=== PATIENT | female | born 1970 | race Caucasian/White ===

== ENCOUNTER 2017-10-16 09:34 | Emergency (ER) | payer OTHER ==
[2017-10-16] MEDS ORDERED: Oseltamivir CAP* 75 MG CAP PO ONE (11:53)
[2017-10-16 12:27] VITALS: BP 124/79
--- NOTE | 2017-10-16 14:56 | ED ---
Influenza-Like Illness - HPI Summary HPI Summary: patient is an otherwise healthy 47-year-old female who presents to the ED with 1 week of flulike symptoms. She endorses nausea, vomiting, respiratory symptoms last week. Those have since improved, until 3 days ago she endorses body aches, weakness, decreased appetite and this morning while working dizziness. She states she is most likely dizzy due to not eating for one week. She continues to drink. Fevers, sweats, chills last week but subsided 2 days ago. She takes lamotrigine daily, but denies other medications. She did not receive the flu vaccine this year. She has not taken anything [id number] for relief. Symptoms aggravated by movement and activity, relieved with rest and sleep. - History of Current Complaint Chief Complaint: EDFluSymptoms Time Seen by Provider: 10/16/17 10:02 Hx Obtained From: Patient Onset/Duration: Sudden Onset Associated Signs & Symptoms: Fever, T Max, F/C Related Hx: Possible Flu/Infectious Exposure - Risk Factors Influenza Risk Factors: Negative - Allergy/Home Medications Allergies/Adverse Reactions: Allergies Allergy/AdvReac Type Severity Reaction Status Date / Time MS Peanut-derived Allergy Unknown ANY TYPE Verified 10/16/17 09:37 OF NUTS MS Erythromycin Allergy Rash Verified 10/16/17 09:37 [Erythromycin] PMH/Surg Hx/FS Hx/Imm Hx Previously Healthy: Yes Endocrine/Hematology History: Reports: Hx Anemia - 3 months ago found to be iron deficient Denies: Hx Diabetes Cardiovascular History: Reports: Hx Hypercholesterolemia - reports elevated HDLs Denies: Hx Hypertension, Hx Pacemaker/ICD Respiratory History: Reports: Hx Asthma - PRN INHALER History: Denies: Hx Dialysis, Hx Renal Disease Musculoskeletal History: Reports: Other Musculoskeletal History Sensory History: Reports: Hx Contacts or Glasses - glasses Denies: Hx Hearing Aid Opthamlomology History: Reports: Hx Contacts or Glasses - glasses Neurological History: Reports: Hx Seizures, Other Neuro Impairments/Disorders - multiple sclerosis, EPILEPSY Psychiatric History: Reports: Hx Depression - pt takes prozac Denies: Hx Panic Disorder - Cancer History Hx Chemotherapy: No Hx Radiation Therapy: No - Immunization History Hx Pertussis Vaccination: No Immunizations Up to Date: Unable to Obtain/Confirm Infectious Disease History: No Infectious Disease History: Denies: Traveled Outside the [place] in Last 30 Days - Social History Occupation: Employed Full-time Lives: With Family Alcohol Use: None Hx Substance Use: Yes Substance Use Type: Reports: Prescribed Smoking Status (MU): Never Smoked Tobacco Review of Systems Positive: Fever, Chills, Fatigue, Skin Diaphoresis Negative: Photophobia, Blurred Vision, Diplopia Negative: Sore Throat, Ear Ache, Nasal Discharge Negative: Palpitations, Chest Pain Positive: Cough. Negative: Shortness Of Breath Negative: Abdominal Pain, Vomiting, Diarrhea, Nausea Genitourinary: Negative Positive: no symptoms reported, see HPI Musculoskeletal: Negative Positive: Weakness - dizziness All Other Systems Reviewed And Are Negative: Yes Physical Exam Triage Information Reviewed: Yes Vital Signs On Initial Exam: Initial Vitals Temp Pulse Resp BP Pulse Ox 99.5 F 64 16 122/72 99 10/16/17 09:37 10/16/17 09:37 10/16/17 09:37 10/16/17 09:37 10/16/17 09:37 Vital Signs Reviewed: Yes Appearance: Positive: Well-Appearing, Well-Nourished Skin: Positive: Warm, Skin Color Reflects Adequate Perfusion Head/Face: Positive: Normal Head/Face Inspection Eyes: Positive: EOMI, WINNIE, Conjunctiva Clear Neck: Positive: Supple, Nontender Respiratory/Lung Sounds: Positive: Clear to Auscultation, Breath Sounds Present Cardiovascular: Positive: Normal, RRR, Pulses are Symmetrical in both Upper and Lower Extremities Musculoskeletal: Positive: Normal, Strength/ROM Intact Neurological: Positive: Speech Normal Psychiatric: Positive: Affect/Mood Appropriate AVPU Assessment: Alert Diagnostics - Vital Signs Vital Signs Temp Pulse Resp BP Pulse Ox 10/16/17 12:27 98.4 F 66 16 124/79 97 10/16/17 12:00 64 124/79 99 10/16/17 11:34 124/72 10/16/17 11:24 64 99 10/16/17 11:04 64 99 10/16/17 11:02 119/75 10/16/17 09:37 99.5 F 64 16 122/72 99 - Laboratory Lab Results: Lab Results 10/16/17 Range/Units 11:24 Influenza A (Rapid) Negative (Negative) Influenza B (Rapid) Positive H (Negative) Lab Statement: Any lab studies that have been ordered have been reviewed, and results considered in the medical decision making process. Flu Symptom Course/Dx - Course Course Of Treatment: During the course of treatment, the patient is evaluated for flulike symptoms. Influenza B+. I have discussed obtaining labs and giving IV fluids, but patient declines. She continues to drink well. 98.9 on arrival and she has not taken any medications for relief. She is given Tamiflu 75 mg in the ED. I have discussed giving Zofran and meclizine for co-occuring symptoms of nausea and dizziness. I have discussed the dizziness is related to her weakness and how she has not eaten, but will provide the meclizine to see if it relieves some of her symptoms. All medications were pharmacologically matched on up-to-date for any adverse effects from the lamotrigine, and there were none to be observed. All medications are safe. She is okay at this time for discharge and will follow-up with her PCP for any worsening or changing symptoms. She is encouraged Tylenol 650 mg for any body aches or fevers. - Diagnoses Differential Diagnosis/HQI/PQRI: Positive: Influenza Provider Diagnoses: Influenza B Discharge - Discharge Plan Condition: Stable Disposition: HOME Prescriptions: Meclizine TAB* [Antivert 12.5 TAB*] 25 mg PO TID #15 tab Ondansetron ODT TAB* [Zofran 4 MG Odt TAB*] 4 mg PO Q6H PRN #12 tab.odt MDD 4 PRN Reason: Nausea Oseltamivir CAP* [Tamiflu CAP*] 75 mg PO BID #9 cap Patient Education Materials: Influenza (ED) Referrals: Eugenio Koehler MD [Primary Care Provider] - Additional Instructions: Ibuprofen 600 mg 3 times daily for any body aches or fevers Humidifier in the home will help Zofran as needed for any nausea Tamiflu twice daily for 5 days Please follow-up with your PCP Rest as much as possible Drink plenty of fluids
== END 2017-10-16 12:27 | disposition home or self-care (01) ==
LOC: ED 09:34
DX: J10.1 Influenza due to other identified influenza virus with other respiratory manifestations (principal); J45.909 Unspecified asthma, uncomplicated; G40.909 Epilepsy, unspecified, not intractable, without status epilepticus; F32.9 Major depressive disorder, single episode, unspecified; D50.9 Iron deficiency anemia, unspecified; E78.00 Pure hypercholesterolemia, unspecified
CPT/HCPCS: 87502; 99282; A9270-GY

== ENCOUNTER 2018-03-23 09:39 | Day surgery (SDC) | payer OTHER ==
[~2018-03-23 09:39] MED LIST: Buffered Lidocaine 0.9% SYRIN* 5 ML/SYR SYRINGE INTRADERM ONE; Famotidine IV* 10 MG/ML 2 ML (20 mg) IV ONE; Famotidine IV* 10 MG/ML 2 ML (20 mg) ONE; ceFAZolin 2 GM PREMIX (*) 2 GM/50 ML BAG IVPB ONE
[2018-03-23] MEDS ORDERED: Midazolam* 1 MG/ML 5 ML VIAL (5 MG) ONE (10:53)
[2018-03-23] MEDS ORDERED: Propofol* 10 MG/ML 20 ML BTL IV PUSH ONE (10:53)
[2018-03-23] MEDS ORDERED: Ondansetron INJ* 2 MG/ML VIAL ONE (10:53)
[2018-03-23] MEDS ORDERED: KETAMINE HCL* 50 MG/ML 10 ML VIAL ONE (10:53)
[2018-03-23] MEDS ORDERED: Lidocaine 2% PF * 5 ML VIAL ONE (10:53)
[2018-03-23] MEDS ORDERED: Dexamethasone IV* 4 MG/ML 1 ML (4 MG) ONE (10:53)
[2018-03-23] MEDS ORDERED: fentaNYL* 50 MCG/ML 2 ML VIAL (100 MCG VIAL) ONE (10:53)
[2018-03-23] MEDS ORDERED: HYDROmorphone INJ* 0.5 MG/0.5 ML SYRINGE ONE (10:56)
[2018-03-23] MEDS ORDERED: Lidocaine 1% MPF wEPI 200,000* 30 ML SDV ONE (12:14)
[2018-03-23] MEDS ORDERED: Methylene Blue 0.5 %* 50 MG/10 ML AMP IV ONE (12:14)
[2018-03-23] MEDS ORDERED: Bupivacaine 0.25% SDV PF* 10 ML VIAL INJ ONE (12:14)
[2018-03-23] MEDS ORDERED: Bupivacaine 0.25% W/EPI* 10 ML SDV ONE (12:15)
[2018-03-23] MEDS ORDERED: Lidocaine 1% INJ* 10 MG/ML 30 ML SDV ONE (12:16)
[2018-03-23] MEDS ORDERED: Lidocain 1% EPI 1:100,000 * 30 ML MDV ONE (12:30)
[2018-03-23] MEDS ORDERED: Naloxone* 0.4 MG/ML 1 ML VIAL IV PRN (13:16)
[2018-03-23] MEDS ORDERED: oxyCODONE/Acetamin 5/325 MG* TAB PO PRN (13:16)
[2018-03-23] MEDS ORDERED: Ondansetron INJ* 2 MG/ML VIAL IV PRN (13:16)
[2018-03-23] MEDS ORDERED: fentaNYL* 50 MCG/ML 2 ML VIAL (100 MCG VIAL) IV PRN (13:16)
[2018-03-23] MEDS ORDERED: Midazolam* 1 MG/ML 2 ML VIAL (2 MG) ONE (13:21)
[2018-03-23] MEDS ORDERED: Petrolatum 5 GM* 5 GM PACKET ONE (14:01)
[2018-03-23 14:50] VITALS: BP 125/83
[2018-03-23] MEDS ORDERED: Acetaminophen TAB* 325 MG ONE (15:33)
== END 2018-03-23 16:05 | disposition home or self-care (01) ==
LOC: OR 09:39
PROVIDERS: ATTEND Plastic Surgery
DX: C44.01 Basal cell carcinoma of skin of lip (principal); J45.909 Unspecified asthma, uncomplicated; I10 Essential (primary) hypertension; G35 Multiple sclerosis; Z80.3 Family history of malignant neoplasm of breast; I95.9 Hypotension, unspecified
CPT/HCPCS: 81025; 88305; 88331; 88332; A9270-GY; J0690; J1100; J1170; J2001; J2250; J2405; J2704; J3010; J3490